=== PATIENT | male | born 1950 | race Caucasian/White ===

== ENCOUNTER → 2020-10-12 | Outpatient (CLI) | payer MEDICARE ==
[~2020-10-12] MED LIST: ACET1TAB34 PO; ACET1TAB38 PO; ACET325T12 PO; ACID1CAP PO; AMIO200T6 PO; AMLO-169 PO; ASCO100016 PO; ASPI-485 PO; ASPI325T14 PO; BIOT25005 PO; CARV25TA2 PO; CEPH250C PO; CHOL100011 PO; CINN500C2 PO; CIPR500T86 PO; CRAN450C PO; CYCL10TA2 PO; DOCU-167 PO; DOCU100T3 PO; FAMO20TA5 PO; FLUT16SP; FURO20TA3 PO; FURO40TA4 PO; GABA100C7 PO; GLUC1CAP PO; HYDR12.58 PO; LISI10TA20 PO; LISI40TA10 PO; MAG355OR14 PO; MAGN400C PO; MELA3TAB31 PO; MULT-632 PO; MUPI1OIN; NAPR220T70 PO; NYST1000 PO; POLY17PO5 PO; POTA10CA PO; POTA10TA31 PO; POTA20TA14 PO; SAW450CA7 PO; SENN8.6T11 PO; TRAM50TA PO; VITA100075 PO; VITA150T PO; WARF5TAB2 PO; [UNRECOGNIZED DRUG - CODE] PO
== END | disposition home or self-care (01) ==
LOC: NPLAB 15:24
PROVIDERS: ATTEND Orthopaedic Surgery
DX: T84.53XA Infection and inflammatory reaction due to internal right knee prosthesis, initial encounter (principal); X58.XXXA Exposure to other specified factors, initial encounter; Y92.89 Other specified places as the place of occurrence of the external cause; Y93.89 Activity, other specified; Y99.8 Other external cause status
CPT/HCPCS: 87070; 87075; 87205

== ENCOUNTER → 2020-10-28 | Outpatient (CLI) | payer MEDICARE | END | disposition home or self-care (01) | LOC: NPLAB 14:52 | PROVIDERS: ATTEND Orthopaedic Surgery | DX: M00.861 Arthritis due to other bacteria, right knee (principal) | CPT/HCPCS: 36415; 87070; 87075; 89051 ==